=== PATIENT | male | born 1965 | race Two or more races ===

== ENCOUNTER 2025-04-23 12:33 | Emergency (ER) | payer MEDICAID, OTHER ==
[~2025-04-23] VITALS: Ht 185.4 cm; Wt 110.0 kg
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
[2025-04-23 13:25] LABS: Hematocrit 50.9 % (41.0-53.0); Hemoglobin 17.5 g/dL (13.5-17.5); Mean Corpuscular Hemoglobin 31.0 pg (28.0-32.0); Mean Corpuscular Volume 90.2 fL (80.0-100.0); Nucleated Red Blood Cells % 0.1 %
--- NOTE | 2025-04-23 13:29 | DVH ---
EXAM: XY CHEST PORTABLE HISTORY: hi bp COMPARISON: None TECHNIQUE: Portable AP view of the chest was performed. FINDINGS: No pneumothorax, consolidative infiltrates, or pulmonary edema. The heart is not enlarged. The aortic arch is calcific. There are postoperative changes of bilateral axillary dissection. There is moderat e thoracic degenerative disc disease. IMPRESSION: 1. No acute intrathoracic process. 2. Postoperative changes of bilateral axillary dissection.
[2025-04-23 13:31] LABS: Anion Gap 9 (5-15); Carbon Dioxide 28 mmol/L (20-31); Chloride 104 mmol/L (98-107); Potassium 4.0 mmol/L (3.5-5.1); Sodium 141 mmol/L (136-145)
[2025-04-23 13:32] LABS: Calcium 9.7 mg/dL (8.7-10.4)
[2025-04-23 13:37] LABS: BUN/Creatinine Ratio 8.7 (10.0-20.0); Blood Urea Nitrogen 11 mg/dL (9-23)
[2025-04-23 13:41] LABS: Glucose 143 mg/dL (74-106)
[2025-04-23 15:31] VITALS: TEMP 98.8
[2025-04-23 16:58] VITALS: BP 170/87; PULSE 92; RESP 20; O2SAT 96
--- NOTE | 2025-04-27 07:38 | ECG ---
[facility] Test Date: 2025-04-23 Test Time: 12:41:51 Pat Name: HARITHA LEE Department: ED Room: Gender: M Spice Miller: JLIZZIE : 1965 Requested By: TERESA MABRY Order Number: [id number] Reading MD: Vel Flynn Measurements Intervals [place] Rate: 72 P: 0 AL: 0 QRS: 51 QRSD: 97 T: 70 QT: 418 QTc: 458 Interpretive Statements Atrial flutter with predominant 4:1 AV block Left ventricular hypertrophy ST elevation, consider anterior injury Electronically Signed On 04-27-2025 18:09:36 PDT by Vel Flynn Please click the below link to view image of tracing.
== END 2025-04-23 17:01 | disposition home or self-care (01) ==
LOC: ER 12:33
DX: I10 Essential (primary) hypertension (principal); Z79.899 Other long term (current) drug therapy
CPT/HCPCS: 36415; 71045; 80048; 82947; 83880; 84484; 85025; 93005